=== PATIENT | female | born 1980 | race Caucasian/White ===

== ENCOUNTER 2017-07-11 10:57 | Emergency (ER) | payer OTHER ==
[~2017-07-11] VITALS: Ht 162.6 cm; Wt 74.4 kg
--- NOTE | 2017-07-11 10:58 | NUR ---
BBIBRA FROM HOME DT SOB AND ALTERED MENTAL STATUS SINCE LAST NIGHT, WORST TODAY. PATIENT RECEIVED ALETERED, ON NON REBREATHER SATING 100%. PATIENT NOTED WITH BAR LIN ON BOTH LOWER ABDOMINAL SIDES WITH PINKISH TO RED DRAINAGE. PER REPORT PATIENT HAD HERNIA REPAIR AND BREAST REDUCTION RECENTLY. SKIN IS COLD TO TOUCH. PT NOTED TACHYPNEIC, SATING LOW 80S ON ROOM AIR. MD CASTORENA AT BEDSIDE
[2017-07-11] MEDS ORDERED: ALTEPLASE 100 MG/VIAL VIAL IV ONE (11:00)
[2017-07-11] MEDS ORDERED: SODIUM BICARBONATE SYR 50 MEQ/50 ML DISP.SYRIN IV ONE (11:00)
[2017-07-11 11:25] LABS: BASOPHILS # (AUTO) 0.1 /CMM (0.0-0.2); EOSINOPHILS # (AUTO) 0.4 /CMM (0.0-0.7); HEMOGLOBIN 9.9 g/dL (11.5-14.8); NEUTROPHILS # (AUTO) 14.3 /CMM (1.8-8.9); WHITE BLOOD COUNT (AUTO) 17.6 K/uL (4.3-11.0)
[2017-07-11 11:27] LABS: BASOPHILS % (AUTO) 0.7 % (0.0-2.0); EOSINOPHILS % (AUTO) 2.1 % (0.0-6.0); HEMATOCRIT 30 % (33-45); LYMPHOCYTES % (AUTO) 11.5 % (20.0-44.0); MEAN CORPUSCULAR HEMOGLOBIN 27 PG (26.0-33.0); MEAN CORPUSCULAR HGB CONC 33 g/dl (31.0-36.0); MEAN CORPUSCULAR VOLUME 83 fL (82-100); MONOCYTES # (AUTO) 0.8 /CMM (0.1-1.30); MONOCYTES % (AUTO) 4.5 % (2.0-12.0); NEUTROPHILS % (AUTO) 81.2 % (43.0-81.0); PLATELET COUNT (AUTO) 374 /CMM (150-450); RDW COEFFICIENT OF VARIATION 13.3 (11.5-15.0); RED BLOOD CELL COUNT(AUTO) 3.63 MIL/uL (4.0-5.2)
[2017-07-11] MEDS ORDERED: IV NS 0.9% 1,000 ML BAG IV ONE (11:30)
[2017-07-11 11:33] LABS: CALCIUM, SERUM 7.5 mg/dL (8.5-10.1); CREATININE 0.9 mg/dL (0.6-1.3); POTASSIUM 3.7 mmol/L (3.5-5.1)
[2017-07-11] MEDS ORDERED: IOHEXOL-350 100 ML VIAL IV ONE (11:35)
[2017-07-11] MEDS ORDERED: IV NS 0.9% 500 ML IV ONE (11:35)
[2017-07-11] MEDS ORDERED: CT SWABBABLE VALVE TRANS SET 1 EA INFUS.SET MC ONE (11:35)
[2017-07-11 11:37] LABS: INR 1.06 (0.85-1.15)
--- NOTE | 2017-07-11 11:37 | NUR ---
MD CASTORENA AT BEDSIDE FOR ANOTHER IV LINE ISERTION
[2017-07-11 11:39] LABS: ALBUMIN 2.1 g/dL (3.4-5.0); BILIRUBIN,DIRECT 0.1 mg/dL (0.0-0.2); BILIRUBIN,TOTAL 0.5 mg/dL (0.2-1.0)
[2017-07-11 11:41] LABS: TROPONIN I 0.101 ng/mL (0.00-0.056)
--- NOTE | 2017-07-11 11:45 | NUR ---
CODE BLUE INIATED BY MD CASTORENA. NO PULSE UPON PALPATION. POSSIBLE PEA
[2017-07-11] MEDS ORDERED: HEPARIN SODIUM, PORCINE 5000 UNITS/1 ML VIAL ONE (11:48)
--- NOTE | 2017-07-11 11:50 | NUR ---
PATIENT INTUBATED BY MD CASTORENA-- F7.5, 20 AT THE [facility]
[2017-07-11] MEDS ORDERED: MIDAZOLAM 50 MG/10 ML VIAL ONE (11:55)
[2017-07-11] MEDS ORDERED: FENTANYL CITRATE IV 1,250 MCG in IV NS 0.9% 250ML IV PRN (12:00)
[2017-07-11] MEDS ORDERED: MIDAZOLAM HCL 100 MG in IV NS 0.9% 80 ML IV PRN (12:00)
[2017-07-11 12:10] VITALS: BP 123/30
--- NOTE | 2017-07-11 12:10 | NUR ---
RT NOTE: LATE ENTRY-PATIENT PLACED ON PB 840 VENT ON AC 30, 500, 100% PER 'S ORDERS. ALARMS VERIFIED AND AUDIBLE. VENT PLUGGED INTO RED OUTLET. AMBU BAG AT [facility].
--- NOTE | 2017-07-11 12:10 | NUR ---
CENTRAL LINE PLACED BY DR CASTORENA
--- NOTE | 2017-07-11 12:10 | NUR ---
RT NOTE LATE ENTRY DUE TO STAT CALLS @1150-PATIENT ORALLY INTUBATED BY WITH 7.5 ETT SECURED AT 20 CM MID LIP LINE. POSITIVE COLOR CHANGE ON CAPNOMETER. BILATERAL CLEAR B/S NOTED. CONTINUED WITH MANUAL VENTILATION VIA AMBU BAG THROUGHOUT CODE BLUE.
[2017-07-11] MEDS: NOREPINEPHRINE 8 MG in IV D5W 500 ML IV PRN ×3 (12:20→17:33)
--- NOTE | 2017-07-11 12:20 | NUR ---
LEVOPHED STARTED ORDERED, PT REMAIN ON VENT
--- NOTE | 2017-07-11 12:35 | NUR ---
PATIENT WAS TAKEN TO CT FOR CT ANGIOGRAM
--- NOTE | 2017-07-11 12:44 | NUR ---
PATIENT NOTED WITH NO PULSE. MD CASTORENA MADE AWARE, EPI GIVEN AND WAS SENT BACK TO ER 5
[2017-07-11] MEDS: HEPARIN INFUSION/D5W 500 ML IV ONE ×2 (12:45→17:25)
--- NOTE | 2017-07-11 12:49 | NUR ---
HEPARIN BOLUS IVP GIVEN ORDERED
[2017-07-11] MEDS ORDERED: D5W IV ONE (13:00)
[2017-07-11] MEDS ORDERED: [UNRECOGNIZED DRUG - OTHER] IV ONE (13:00)
[2017-07-11] MEDS ORDERED: ALTEPLASE 1 VIAL IV ONE (13:00)
[2017-07-11] MEDS ORDERED: EPINEPHRINE (1:1000) 2 MG in IV D5W 250 ML IV PRN (13:00)
[2017-07-11] MEDS ORDERED: ALTEPLASE 1 VIAL ONE (13:01)
--- NOTE | 2017-07-11 13:01 | NUR ---
ABEL CALDWELL AT BEDSIDE WITH MD CASTORENA FOR CARDIAC ACTIVITY CHECK
--- NOTE | 2017-07-11 13:06 | NUR ---
PATIENT BROUGHT TO CT SCANNER AT [facility] 1240, Dr Morgan will sign consent for iv contrast , patient unable to sign. Medical necesity. patient unstable
--- NOTE | 2017-07-11 13:12 | NUR ---
DR. HAIRSTON AT BEDSIDE. MD CASTORENA DISCUSSING PATIENT'S CURRENT CONDITION
--- NOTE | 2017-07-11 13:15 | NUR ---
TPA BOLUS GIVEN ORDERED. TPA MIXED BY PHARMACIST CAMPBELL
--- NOTE | 2017-07-11 13:34 | NUR ---
PATIENT'S SURGEON AT BEDSIDE
--- NOTE | 2017-07-11 13:50 | NUR ---
CAMPBELL AT BEDSIDE FOR A LINE
[2017-07-11 13:51] VITALS: BP 105/68
--- NOTE | 2017-07-11 14:00 | NUR ---
SPOKE WITH YOCASTA FROM [facility] (TRANSFER CENTER PER DR HAIRSTON) SHE NOTIFIED ME THAT THEY DO NOT HAVE ICU BEDS
[2017-07-11] MEDS ORDERED: SODIUM BICARBONATE SYR 50 MEQ/50 ML DISP.SYRIN ONE ×4 (14:06→15:00)
--- NOTE | 2017-07-11 14:06 | NUR ---
DR MEADOWS SPOKE WITH DR CHATTERJEE ON THE PHONE ORDERED TO TRANSFER THE PATIENT TO [facility].
--- NOTE | 2017-07-11 14:09 | NUR ---
PATIENT NOTED POSITIVE PLSE VIA DOPPLER ABEL.
--- NOTE | 2017-07-11 14:20 | NUR ---
MD STOVER AT BEDSIDE
--- NOTE | 2017-07-11 14:27 | NUR ---
DR CASTORENA SPOKE WITH MARJORIE JO MD AUTHORIZED TO TRANSFER TO ANY ACUTE HOSPITAL [facility].
[2017-07-11] MEDS ORDERED: DOPamine 400 MG in IV D5W 250 ML IV PRN (14:30)
--- NOTE | 2017-07-11 14:30 | NUR ---
CENTRAL LINE STARTED BY CAMPBELL CLAYTON
--- NOTE | 2017-07-11 14:35 | NUR ---
CALLED [facility] TRANSFER LINE, I SPOKE WITH RUTH. I FAXED PAPER WORK OVER TO RUTH NOTIFIED HER THAT PATIENT REQUIRES ICU BED.
[2017-07-11 14:59] LABS: ABG BASE EXCESS -16.9 mmol/L; ABG OXYGEN SATURATION 98.7 % (92.0-98.5); ABG PCO2 49.9 mmHg (35.0-45.0); ABG PH 7.008 (7.350-7.450); ABG PO2 296.5 mmHg (75.0-100.0); AaDO2 366.6 mmHg; COHb 2.1 % (0.5-1.5); MetHb 1.4 % (0.0-1.5); O2Hb 95.2 % (94.0-97.0); PEEP,BG 0 cm H2O; SITE, ABG A-Line; VT, ABG 550 mL
--- NOTE | 2017-07-11 14:59 | NUR ---
[facility] AT PATIENT BEDSIDE, DR CASTORENA MADE AWARE
[2017-07-11] MEDS ORDERED: Sodium Bicarbonate 150 MEQ in IV D5W 1,000 ML IV ONE (15:00)
[2017-07-11] MEDS ORDERED: ATROPINE SULFATE 1 MG/10 ML DISP.SYRIN ONE ×2 (15:00)
[2017-07-11] MEDS ORDERED: EPINEPHRINE (1:10,000) SYRINGE 1 MG/10 ML DISP.SYRIN ONE ×2 (15:00)
--- NOTE | 2017-07-11 15:07 | NUR ---
[facility] TRANSFER INFO: [facility]: ICU [phone] PERKINS - INTERVENTIONAL RADIOLOGIST DR IVEY - ICU MD
[2017-07-11 15:15] VITALS: BP 130/40
[2017-07-11 15:30] VITALS: BP 80/37
--- NOTE | 2017-07-11 15:30 | NUR ---
PATIENT WAS TRASNPORTED TO [facility], ALL ORDERED DRIPS ONGOING. CAMPBELL CLAYTON TRANSPORTED PT WITH AMBULANCE. PATIENT;S FAMILY AWRE OF PLAN OF CARE
--- NOTE | 2017-07-11 15:36 | NUR ---
RT NOTE: PATIENT PLACED ON TRANSPORT TEAM VENT AND TRANSPORTED OUT.
== END 2017-07-11 19:11 | disposition short-term general hospital (02) ==
LOC: ER 10:59
DX: I46.9 Cardiac arrest, cause unspecified (principal); J96.01 Acute respiratory failure with hypoxia; I26.99 Other pulmonary embolism without acute cor pulmonale; Z98.82 Breast implant status
CPT/HCPCS: 36415; 36600; 71045-TC; 80048-TC; 80076-TC; 82803-TC; 83605-TC; 84484-TC; 85025-TC; 85730-TC; 87040-TC; 93307-TC; A4606; C1751; J0171; J0461; J1644; J2250; J2997; J3010; J3490; J7030; J7040; J7050; J7060; J7070; Q9967; Z7610